=== PATIENT | male | born 2000 | race Hispanic/Latino ===

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

== ENCOUNTER 2022-01-21 09:44 | Emergency (ER) | payer OTHER ==
[2022-01-21] MEDS ORDERED: Ondansetron ODT 4 MG TAB ONE (10:15)
[2022-01-21] MEDS ORDERED: Dexamethasone 4 MG TAB ONE (10:15)
[2022-01-22] MEDS ORDERED: Sodium Bicarb 5 MEQ/10 ML Abboject 4.2% SYRINGE ONE (10:30)
[2022-01-22] MEDS ORDERED: Sodium Bicarb 50 MEQ/50 ML Abboject 8.4% SYRINGE ONE (10:30)
== END 2022-01-21 10:34 | disposition home or self-care (01) ==
LOC: MADERS 09:44
DX: R11.2 Nausea with vomiting, unspecified (principal); F17.210 Nicotine dependence, cigarettes, uncomplicated
CPT/HCPCS: 99283; J8540; Q0162

== ENCOUNTER 2022-08-10 14:41 | Emergency (ER) | payer OTHER ==
[2022-08-10] MEDS ORDERED: Boostrix 0.5 ML (Tdap) VIAL (>/=7 yrs of age) ONE (15:37)
[2022-08-10] MEDS ORDERED: Ibuprofen 600 MG TAB ONE (15:37)
== END 2022-08-10 16:10 | disposition home or self-care (01) ==
LOC: MADERS 14:41
DX: S52.122A Displaced fracture of head of left radius, initial encounter for closed fracture (principal); F17.210 Nicotine dependence, cigarettes, uncomplicated; V10.0XXA Pedal cycle driver injured in collision with pedestrian or animal in nontraffic accident, initial encounter; Y93.55 Activity, bike riding; Z23 Encounter for immunization
CPT/HCPCS: 24650; 90471; 90715